=== PATIENT | male | born 2000 | race Caucasian/White ===

== ENCOUNTER 2024-01-19 10:35 | Emergency (ER) | payer OTHER ==
[~2024-01-19] VITALS: Ht 172.7 cm; Wt 88.6 kg
[2024-01-19] MEDS ORDERED: OMEP10CASR PO (10:43)
[2024-01-19 10:45] VITALS: TEMP 98.4
[2024-01-19] MEDS: IBUPROFEN 600MG TAB PO ONE (10:54)
[2024-01-19] MEDS: ACETAMINOPHEN 325 MG TAB PO ONE (10:54)
[2024-01-19] MEDS ORDERED: IBUP-1022 PO (12:47)
[2024-01-19] MEDS ORDERED: CYCL-707 PO (12:48)
[2024-01-19 13:30] VITALS: BP 128/76; O2SAT 98
== END 2024-01-19 13:39 | disposition home or self-care (01) ==
LOC: M ED 10:35
DX: S09.90XA Unspecified injury of head, initial encounter (principal); S39.012A Strain of muscle, fascia and tendon of lower back, initial encounter; S16.1XXA Strain of muscle, fascia and tendon at neck level, initial encounter; V49.40XA Driver injured in collision with unspecified motor vehicles in traffic accident, initial encounter; J98.11 Atelectasis; F10.10 Alcohol abuse, uncomplicated; Z79.83 Long term (current) use of bisphosphonates; Z79.1 Long term (current) use of non-steroidal anti-inflammatories (NSAID); Z79.899 Other long term (current) drug therapy; Y92.410 Unspecified street and highway as the place of occurrence of the external cause; Y93.89 Activity, other specified; Y99.9 Unspecified external cause status